=== PATIENT | female | born 1970 | race Caucasian/White ===

== ENCOUNTER 2017-12-26 13:20 | Emergency (ER) | payer SELFPAY ==
[~2017-12-26] VITALS: Ht 170.2 cm; Wt 86.2 kg
[2017-12-26] MEDS ORDERED: EFFEXOR XR150 MG PO (13:28)
[2017-12-26] MEDS ORDERED: HYDROCHLOROTHIA50 MG PO (13:28)
[2017-12-26] MEDS ORDERED: LOSARTAN POTASS25 MG PO (13:29)
[2017-12-26] MEDS ORDERED: K-TAB ER20 MEQ PO (17:08)
== END 2017-12-26 17:16 | disposition home or self-care (01) ==
LOC: ED 13:20
DX: E87.6 Hypokalemia (principal); R55 Syncope and collapse; F32.9 Major depressive disorder, single episode, unspecified; E03.9 Hypothyroidism, unspecified; I10 Essential (primary) hypertension; Z87.891 Personal history of nicotine dependence; Z79.899 Other long term (current) drug therapy
CPT/HCPCS: 80053; 81001; 85025; 96361; 96365; 99284; G0480; J3480; J7030